=== PATIENT | male | born 1965 | race Two or more races ===

== ENCOUNTER 2017-09-02 13:51 | Day surgery (SDC) | payer BC ==
[~2017-09-02] VITALS: Ht 172.7 cm; Wt 85.5 kg
[2017-09-02] MEDS ORDERED: SIMV10TA PO (14:25)
[2017-09-02] MEDS ORDERED: ASPI-664 PO (14:25)
[2017-09-02] MEDS ORDERED: GEMF600T PO (14:25)
[2017-09-02 14:28] VITALS: Ht 172.7 cm; Wt 85.5 kg
--- NOTE | 2017-09-02 15:23 | OPPN ---
Date/Time of Note Date/Time of Note DATE: 09/02/17 TIME: 15:21 Operative Report Preoperative Diagnosis Screening: colonoscopy Postoperative Diagnosis Normal colonoscopy Operation/Procedure Performed Colonoscopy Surgeon see signature line training program assistant None Anesthesia: moderate sedation (Versed 2 mg fentanyl 50 mcg moderate sedation 12 minutes) Estimated blood loss: none Transfusion Required none Specimen None Grafts/Implants none Complications none JARVIS TAY MD Sep 02, 2017 15:23
--- NOTE | 2017-09-02 15:23 | OPPN ---
Date/Time of Note Date/Time of Note DATE: 09/02/17 TIME: 15:21 Operative Report Preoperative Diagnosis Screening: colonoscopy Postoperative Diagnosis Normal colonoscopy Operation/Procedure Performed Colonoscopy Surgeon see signature line manager assisted living None Anesthesia: moderate sedation (Versed 2 mg fentanyl 50 mcg moderate sedation 12 minutes) Estimated blood loss: none Transfusion Required none Specimen None Grafts/Implants none Complications none JARVIS TAY MD Sep 02, 2017 15:23
--- NOTE | 2017-09-02 15:23 | OPPN ---
Date/Time of Note Date/Time of Note DATE: 09/02/17 TIME: 15:21 Operative Report Preoperative Diagnosis Screening: colonoscopy Postoperative Diagnosis Normal colonoscopy Operation/Procedure Performed Colonoscopy Surgeon see signature line patient assistant None Anesthesia: moderate sedation (Versed 2 mg fentanyl 50 mcg moderate sedation 12 minutes) Estimated blood loss: none Transfusion Required none Specimen None Grafts/Implants none Complications none JARVIS TAY MD Sep 02, 2017 15:23
[2017-09-02] MEDS ORDERED: FENTAnyl 50 MCG/ML VIAL ONE (15:25)
[2017-09-02] MEDS ORDERED: MIDAZOLAM 1 MG/ML 2 ML INJ ONE (15:26)
--- NOTE | 2017-09-03 06:11 | GILP ---
DATE OF PROCEDURE: PREOPERATIVE DIAGNOSIS: Screening colonoscopy and lower abdominal pain. POSTOPERATIVE DIAGNOSIS: Essentially normal colon. SEDATION: Moderate sedation Versed 2 mg, 50 mcg of fentanyl. DESCRIPTION OF PROCEDURE: After obtaining informed consent, he was sedated, monitored, oximetry, EK G, blood pressure. Rectal exam normal. Advanced Olympus video colonoscope all the way to cecum after sedation and exam ination demonstrated essentially normal cecum, ascending colon; normal transverse colon, descending colon. Sigmoid colon was somewhat tortuous but normal. Rectum including retroflexion is normal. U chelsey removal of scope, patient had no complication. Total time for moderate sedation was 12 minutes. Plan will be to recommend him to continue to be followed with the primary MD, yearly occult blood, a repeat colonoscopy in 10 years. Dictated By: JARVIS BROWN Conf#: [id number] DID#: [id number]
== END 2017-09-02 15:58 | disposition home or self-care (01) ==
LOC: GIL 13:51
PROVIDERS: ATTEND Internal Medicine
DX: Z12.11 Encounter for screening for malignant neoplasm of colon (principal); E78.5 Hyperlipidemia, unspecified
CPT/HCPCS: 45378; J2250; J3010

== ENCOUNTER 2019-01-06 06:52 | Day surgery (SDC) | payer BC ==
[~2019-01-06] VITALS: Ht 172.7 cm; Wt 90.5 kg
[~2019-01-06 06:52] MED LIST: ASPI-817 PO; GEMF600T PO; SIMV10TA PO
[2019-01-06 08:51] VITALS: Ht 172.7 cm; Wt 90.5 kg
[2019-01-06 09:37] VITALS: BP 141/81; PULSE 60; RESP 15
[2019-01-06] MEDS ORDERED: FENTAnyl 50 MCG/ML VIAL ONE (10:08)
[2019-01-06] MEDS ORDERED: MIDAZOLAM 1 MG/ML 2 ML INJ ONE ×2 (10:08)
[2019-01-06 10:31] VITALS: BP 117/79; RESP 20
== END 2019-01-06 11:38 | disposition home or self-care (01) ==
LOC: GIL 06:52
PROVIDERS: ATTEND Internal Medicine Gastroenterology
DX: Z12.11 Encounter for screening for malignant neoplasm of colon (principal)
CPT/HCPCS: J2250; J3010